=== PATIENT | female | born 1975 | race Caucasian/White ===

== ENCOUNTER 2017-12-07 09:12 | Outpatient (CLI) | payer OTHER | END 2017-12-07 09:13 | disposition home or self-care (01) | LOC: BICMAMMO 09:12 | PROVIDERS: ATTEND Obstetrics & Gynecology | DX: N63.21 Unspecified lump in the left breast, upper outer quadrant (principal) | CPT/HCPCS: 76641; G0279 ==

== ENCOUNTER 2021-06-10 10:17 | Outpatient (CLI) | payer OTHER ==
[~2021-06-10 10:17] MED LIST: Iopamidol-370 76% 500 ML 1 ML ONE
== END 2021-06-10 10:18 | disposition home or self-care (01) ==
LOC: BICCT 10:17
PROVIDERS: ATTEND Internal Medicine Gastroenterology
DX: R10.32 Left lower quadrant pain (principal); Z90.710 Acquired absence of both cervix and uterus
CPT/HCPCS: 72193; Q9967